=== PATIENT | male | born 1965 | race Caucasian/White ===

== ENCOUNTER 2018-09-11 12:37 | Emergency (ER) | payer BC ==
[2018-09-11 16:46] LABS: URINE BLOOD (Dip) POC Trace-intact (NEGATIVE); URINE GLUCOSE (Dip) POC Negative (NEGATIVE); URINE KETONES (Dip) POC Negative (NEGATIVE); URINE LEUKOCYTE EST (Dip) POC Negative (NEGATIVE); URINE NITRITE (Dip) POC Negative (NEGATIVE); URINE TOTAL PROTEIN POC Negative (NEGATIVE)
[2018-09-11] MEDS: traMADol 50 MG TAB PO (17:37)
== END 2018-09-11 18:00 | disposition home or self-care (01) ==
LOC: E/R 12:37
DX: R60.9 Edema, unspecified (principal)
CPT/HCPCS: 81003; 93970; 99284-25